=== PATIENT | female | born 2000 | race Two or more races ===

== ENCOUNTER 2023-08-14 13:43 | Emergency (ER) | payer SELFPAY ==
[~2023-08-14] VITALS: Ht 147.3 cm; Wt 43.1 kg
[2023-08-14 15:40] VITALS: BP 116/84; TEMP 98; O2SAT 98
== END 2023-08-14 15:40 | disposition left against medical advice (07) ==
LOC: ER 13:43
DX: R44.0 Auditory hallucinations (principal)